=== PATIENT | female | born 1950 | race Caucasian/White ===

== ENCOUNTER 2025-04-12 13:17 | Emergency (ER) | payer MEDICARE, OTHER, SELFPAY ==
[2025-04-12 13:21] VITALS: BP 184/109
[2025-04-12 17:52] VITALS: BMI 24.0
[2025-04-12 18:01] VITALS: BP 161/80
[2025-04-12 18:02] LABS: Urine Character Clear (Clear)
[2025-04-12 18:07] LABS: Hematocrit 42.7 % (37.0-47.0); Hemoglobin 15.0 g/dL (12.0-16.0); Mean Corp Hgb Conc. 35.1 g/dL (33.0-37.0); Mean Corpuscular Volume 91.4 fL (81.0-99.0); Nucleated Red Blood Cells % 0 %; Platelet Count 216 10^3/uL (130-400); Red Cell Dist. Width 12.9 % (11.5-14.5)
[2025-04-12 18:24] LABS: Urine Squamous Cell 0-2 /LPF (Few)
[2025-04-12 18:25] LABS: Urine White Cell 0-2 /HPF (0-5)
[2025-04-12 18:26] LABS: ALT (SGPT) 23 U/L (0-35); AST (SGOT) 38 U/L (14-36); Albumin 4.3 g/dl (3.5-5.0); Alkaline Phosphatase 117 U/L (38-126); Blood Urea Nitrogen 11 mg/dl (7-17); Calcium 9.1 mg/dl (8.4-10.2); Carbon Dioxide 25 mmol/L (22-30); Chloride 94 mmol/L (98-107); Estimated Creatinine Clearance 53 ml/min; Glucose 105 mg/dl (70-99); Potassium 3.9 mmol/L (3.5-5.1); Sodium 127 mmol/L (135-145); Total Protein 7.5 g/dl (6.3-8.2); eGFR > 60.00
[2025-04-12 18:28] LABS: C-Reactive Protein < 5.00 mg/L (0.0-10.00)
[2025-04-12 19:00] VITALS: BP 151/79
--- NOTE | 2025-04-12 20:35 | ED.GENMED ---
History of Present Illness
General
Chief Complaint: Facial Problem
Source: patient
Exam Limitations: none
Time Seen by Provider: 04/12/25 17:09
Nursing documentation reviewed up to this point in time: agreed with
History of Present Illness
History of Present Illness:
Note:
CHIEF COMPLAINT(S)
Right temporal pain and swelling.
HISTORY OF PRESENT ILLNESS
The patient is a 74-year-old female who presented with right temporal pain and swelling that began this morning. She describes the pain as very painful and swollen to the touch, affecting her ability to open her mouth. The patient reports that she
has never experienced pain like this before but occasionally may have felt discomfort in the area that she previously did not pay attention to. She is concerned about the pains onset and severity, particularly since it coincides with her ability to
get easily nervous, which she states affects her blood pressure. The patient is aware of her hypertension, attributing fluctuations in her blood pressure to stress. A computed tomography (CT) scan was performed, and initial results were reported as
normal. Further blood tests were ordered to rule out potential temporal arteritis.
CHRONIC MEDICAL CONDITIONS SIGNIFICANTLY AFFECTING CARE
The patient has a history of hypertension, noting that it fluctuates with stress.
PHYSICAL EXAM
General: Alert, no acute distress.
Skin: Warm, dry.
Head: Normocephalic, atraumatic.
Neck: Supple, trachea midline.
Eye Ears, nose, mouth and throat: Oral mucosa moist.
Cardiovascular: Normal peripheral perfusion, no edema.
Respiratory: Respirations are non-labored.
Gastrointestinal: Abdomen nondistended.
Back: Normal range of motion, normal alignment.
Musculoskeletal: Normal ROM, normal strength.
Neurological: Alert and oriented to person, place, time, and situation, no focal neurological deficit observed.
Psychiatric: Cooperative, appropriate mood & affect.
PLAN
A blood test was ordered to rule out temporal arteritis, given the symptoms and patient history. The patient was informed about the test procedure and reassured about the timing and details of the test.
DIFFERENTIAL DIAGNOSIS
The Differential Diagnosis includes, in no particular order and is not limited to:
1. Temporal arteritis
2. Tension headache
3. Migraine
4. Temporomandibular joint disorder
5. Infection of the temporal bone
6. Trigeminal neuralgia
7. Giant cell arteritis
8. Sinusitis
9. Hypertension crisis
10. Dental abscess
Disposition:
SUMMARY OF ENCOUNTER
A 74-year-old female presented with right temporal pain and swelling. There was a clinical concern for temporal arteritis (giant cell arteritis). The patients temporal pain waxed and waned. A CT scan was completed, and an ultrasound of the temporal
artery was recommended by vascular surgery. Unfortunately, the facility was unable to perform a temporal artery ultrasound. An attempt to contact rheumatology for further advice was made but no response was received at the time of assessment. The
standard approach in such cases usually involves initiating steroid treatment and arranging follow-up with rheumatology.
PLAN
A blood test was ordered to rule out temporal arteritis. Discharge with a prescription for steroids was considered appropriate management, with follow-up advised with rheumatology.
INDEPENDENT REVIEW OF LABS AND INTERPRETATION OF TESTS
My independent interpretation of the CT scan reported findings as normal with no abnormalities detected, such as inflammation or artery inflammation indicative of temporal arteritis.
PATIENT EDUCATION AND COUNSELING
Patient was informed about the process and purpose of upcoming tests, including the possibility of initiating steroid therapy and the importance of rheumatology follow-up for temporal artery evaluation.
FOLLOW-UP INSTRUCTIONS
The patient is advised to schedule a follow-up with a [employer]er tenders supervisor as soon as possible to further evaluate for potential temporal arteritis.
MEDICATION RECONCILIATION
A prescription for steroids is considered to manage the suspected temporal arteritis, though it is contingent upon follow-up with rheumatology for confirmation and further management.
MEDICAL DECISION MAKING
- Number and Complexity of Problems Addressed: Chronic conditions affecting care include hypertension. Differential diagnosis considered includes temporal arteritis, tension headache, migraine, temporomandibular joint disorder, infection of the
temporal bone, trigeminal neuralgia, giant cell arteritis, sinusitis, hypertensive crisis, and dental abscess.
- Data:
Category 1:
- Reviewed CT scans which were reported as normal.
- Contact attempted with rheumatology for consultation.
- Coordination with vascular surgery regarding the need for a temporal artery ultrasound.
Category 2:
- No independent sources other than patient reported.
Category 3:
- Discussions with vascular surgery confirmed the need for temporal artery ultrasound.
- Risk: Consideration of Admission/Observation: Escalation of care including admission/observation was considered given the complexity and risk of the patients presenting complaint, exam findings, and/or their underlying comorbidities. However,
ultimately the patient is safe for outpatient management with close follow-up based on reviewed work-up, stable vitals, and no acute life-threatening processes identified.
DIAGNOSIS
Suspected Temporal Arteritis (GCA) (ICD-10: M31.6), Hypertension (ICD-10: I10).
Past History
Past History
ED Past Medical History: HTN and Hypercholesterolemia (but elevated HDL); Negative CAD
Social History
Tobacco: Non-smoker
Personal:
Living: with family
Phy Exam
Physical Exam
Physical Exam:
.
Course
Orders/Labs/Results
Orders:
Orders
04/12/25 13:25
CT Head W/o Iv Contrast Urgent
Comment:
Reason For Exam: head ache swelling htn
04/12/25 17:49
Comprehensive Metabolic Panel Urgent
04/12/25 17:50
CRP [C-Reactive Protein] Urgent
Complete Blood Count/With Diff Urgent
Sed Rate [Erythrocyte Sed Rate] Urgent
Urinalysis Reflex To Culture Urgent
Date Specimen was Collected: 04/12/25
Time Specimen was Collected: 17:47
Urine Microscopic Reflex Cult Urgent
Abnormal Lab Results
04/12/25 04/12/25
17:49 17:50
MCH 32.1 H pg
(27.0-31.0)
Absolute Lymphs (auto) 0.7 L 10^3/uL
(1.2-3.4)
Neutrophils % 80.0 H %
(42.2-75.2)
Lymphocytes % 10.9 L %
(20.5-51.1)
Sodium 127 L mmol/L
(135-145)
Chloride 94 L mmol/L
(98-107)
Creatinine 0.5 L mg/dL
(0.6-1.0)
Glucose 105 H mg/dl
(70-99)
AST 38 H U/L
(14-36)
Urine Ketones 1+ A
(Negative)
Ur Occult Blood Reflex 1+ A
(Negative)
Urine RBC 3-6 A /HPF
(0-2)
Urine Bacteria (Reflex) Few A
(Negative)
04/12/25 17:50
04/12/25 17:49
Vital Signs
Initial and Last Documented VS:
Initial Vital Signs
Temp Pulse Resp BP Pulse Ox
97.9 F 111 20 184/109 99
04/12/25 13:21 04/12/25 13:21 04/12/25 13:21 04/12/25 13:21 04/12/25 13:21
Last Documented Vital Signs
Temp Pulse Resp BP Pulse Ox
97.9 F 85 20 161/80 98
04/12/25 13:21 04/12/25 17:52 04/12/25 13:21 04/12/25 18:01 04/12/25 18:07
*Radiology
Radiology exam reviewed: radiology read reviewed
*Pulse Oximetry
SaO2: 98
Oxygen Mode of Delivery: Room air
Patient hypoxic: no
*Critical Care Note
Total Time (30-74mins, 75-104mins- exclusive of procedures): Not Applicable
Update Note
Update Note:
Spoke with vascular surgery, interventional radiology. They also did [facility] text rheumatology. Patient to start restarted on steroids and follow-up with rheumatology.
ED Attending Note
-
Portions of this chart may have been created with voice recognition software.� Occasional wrong word or��sound alike� substitutions may have occurred due to the inherent limitations of voice recognition software.
Discharge Plan
Departure
Patient Disposition: Home (Routine Discharge)
Date of Disposition: 04/12/25
Time of Disposition: 20:36
Patient with high blood pressure during this ER visit?: Yes
Condition: Good
Discharge Problem:
Temporal pain
Instructions: Polymyalgia rheumatica and giant cell arteritis
Prescriptions:
New
prednisone 50 mg tablet
50 mg PO DAILY Qty: 5 0RF
No Action
losartan 50 MG tablet
50 mg PO BID
clonidine HCl 0.1 MG tablet
0.1 mg PO HSPRN PRN (Reason: htn at night)
carvedilol 6.25 MG tablet
6.25 mg PO BID
doxazosin 1 MG tablet
1 mg PO BID
calcium carbonate [Calcium 600] 600 MG tablet
600 mg PO DAILY
ascorbic acid (vitamin C) [Vitamin C] 500 MG tablet
500 mg PO DAILY
omega-3 fatty acids-fish oil [Fish Oil] 1,000 MG capsule
1,200 mg PO DAILY
cholecalciferol (vitamin D3) [Vitamin D3] 2,000 UNIT capsule
2,000 unit PO DAILY
Valerian Root
1 dose PO HSPRN PRN (Reason: INSOMNIA/NERVOUSNESS)
Referrals:
Lamberto Dinh MD [Family Provider, Internal Medicine]
Pedro Luz MD [Active, Rheumatology] - Next open appointment
Activity Restrictions/Additional Instructions:
Your prescriptions were sent electronically to the pharmacy that you specified.
Thank You for choosing [facility].
It was a pleasure meeting you and taking part in your care. We hope for your continued healing and wellness.
Please read discharge instructions in their entirety. However, they are for general education and may not describe your exact diagnosis at discharge. Information on your ER visit and medical conditions were discussed with you along with appropriate
follow up information...
If indicated, please take your medications as instructed and indicated on discharge paperwork.
Please schedule a follow up appointment as directed. Call to schedule an appointment
Please return to the emergency department with ANY change in, persisting, or worsening of symptoms. If any of your symptoms do not improve, or persist, or become more severe within 6-12 hours, please return to the emergency department for further
care.
Please return to the emergency department if you develop a headache, neck pain/stiffness, fever greater than 100.4F, chest pain, shortness of breath, persistent nausea, vomiting, slurred speech, difficulty walking, numbness/tingling, weakness, signs
of infection or any other symptoms that are worrisome to you.
If you have any questions or concerns please do not hesitate to call the Hospital at .
Interventions
Interventions:
*General Assessment Last Done: 04/12/25 13:21
*Neglect/Abuse Screening Last Done: 04/12/25 13:21
*ED COVID-19 Vaccine History Last Done: 04/12/25 18:49
*ED Influenza Vaccine History Last Done: 04/12/25 18:49
[facility] Risk Assessment Tool Last Done: 04/12/25 17:52
*Risk Screen - Suicide (C-SSRS) Last Done: 04/12/25 13:21
ED- Neurological Assessment Last Done: 04/12/25 18:49
ED-Skin Assessment Last Done: 04/12/25 18:49
Discharge Date and Time
Print Language: MEXICAN
[2025-04-12] MEDS: DELTASONE 50 MG PO (20:53)
== END 2025-04-12 20:57 | disposition home or self-care (01) ==
LOC: EMR 13:17
PROVIDERS: EMERGENCY PHYSICIAN Student in an Organized Health Care Education/Training Program; FAMILY PHYSICIAN Internal Medicine
DX: R51.9 Headache, unspecified (principal); E78.00 Pure hypercholesterolemia, unspecified; I10 Essential (primary) hypertension
CPT/HCPCS: 99284; 70450; 80053; 81003; 81015; 85025; 85652; 86140